=== PATIENT | female | born 1960 | race Caucasian/White ===

== ENCOUNTER 2018-09-01 21:20 | Inpatient (IN) | payer MEDICAID ==
[~2018-09-01] VITALS: Ht 152.4 cm; Wt 61.5 kg
[2018-09-01 21:25] VITALS: Ht 152.4 cm; Wt 61.5 kg
[2018-09-01] MEDS ORDERED: morphine 4 MG/ML VIAL IV STA (23:41)
[2018-09-01] MEDS ORDERED: SOD CHLORIDE 0.9% 500 ML IV STA (23:41)
[2018-09-01] MEDS ORDERED: FAMOTIDINE 20 MG INJ IV STA (23:41)
[2018-09-01] MEDS ORDERED: ONDANSETRON 4 MG INJ IV STA (23:41)
[2018-09-02] MEDS ORDERED: CIPROFLOXACIN 400MG/D5W 200 ML IVPB STA (02:30)
[2018-09-02] MEDS ORDERED: SOD CHLORIDE 0.9% 1,000 ML IV SCH (02:31)
--- NOTE | 2018-09-02 02:39 | ERD ---
ER Documentation Chief Complaint Chief Complaint EPIGASTRIC PAIN X'S 4 DAYS HPI This is a 57-year-old female with epigastric pain for 4 days. Pain is mild to moderate intensity with associated nausea and 4 episodes of vomiting nonbilious and nonbloody. She denies any fevers or chills. Denies any recent abdominal trauma. Denies any sick contacts. Denies any change in bowel habits. Has not been able to tolerate p.o. today secondary to pain. ROS All systems reviewed and are negative except as per history of present illness. Allergies Allergies: Coded Allergies: No Known Allergy (Unverified , 09/02/18) PMhx/Soc Medical and Surgical Hx: pt denies Medical Hx, pt denies Surgical Hx Hx Alcohol Use: No Hx Substance Use: No Hx Tobacco Use: No Smoking Status: Never smoker Physical Exam Vitals Vital Signs Date Temp Pulse Resp B/P (MAP) Pulse Ox O2 O2 Flow FiO2 Time Delivery Rate 09/01/18 99.3 89 20 140/69 98 Room Air 23:36 (92) 09/01/18 99.3 95 20 145/65 98 21:25 (91) Physical Exam Const: No acute distress Head: Atraumatic Eyes: Normal Conjunctiva ENT: Normal External Ears, Nose and Mouth. Neck: Full range of motion. No meningismus. Resp: Clear to auscultation bilaterally Cardio: Regular rate and rhythm, no murmurs Abd: Soft, non tender, non distended. Normal bowel sounds Skin: No petechiae or rashes Back: No midline or flank tenderness Ext: No cyanosis, or edema Neur: Awake and alert Psych: Normal Mood and Affect Result Diagram: 09/01/18 2356 09/01/18 2356 Results 24 hrs Laboratory Tests Test 09/01/18 23:56 White Blood Count 11.9 10^3/ul Red Blood Count 5.01 10^6/ul Hemoglobin 13.9 g/dl Hematocrit 42.1 % Mean Corpuscular Volume 84.0 fl Mean Corpuscular Hemoglobin 27.7 pg Mean Corpuscular Hemoglobin Concent 33.0 g/dl Red Cell Distribution Width 13.2 % Platelet Count 159 10^3/UL Mean Platelet Volume 10.8 fl Immature Granulocytes % 0.400 % Neutrophils % 79.6 % Lymphocytes % 14.4 % Monocytes % 5.2 % Eosinophils % 0.1 % Basophils % 0.3 % Nucleated Red Blood Cells % 0.0 /100WBC Immature Granulocytes # 0.050 10^3/ul Neutrophils # 9.5 10^3/ul Lymphocytes # 1.7 10^3/ul Monocytes # 0.6 10^3/ul Eosinophils # 0.0 10^3/ul Basophils # 0.0 10^3/ul Nucleated Red Blood Cells # 0.0 10^3/ul Urine Color CHANTEL Urine Clarity SLIGHTLY CLOUDY Urine pH 5.0 Urine Specific [place] 1.023 Urine Ketones 1+ mg/dL Urine Nitrite NEGATIVE mg/dL Urine Bilirubin NEGATIVE mg/dL Urine Urobilinogen NEGATIVE mg/dL Urine Leukocyte Esterase NEGATIVE Nick/ul Urine Microscopic RBC 2 /HPF Urine Microscopic WBC 1 /HPF Urine Squamous Epithelial Cells MODERATE /HPF Urine Bacteria FEW /HPF Urine Mucus MODERATE /HPF Urine Hemoglobin 1+ mg/dL Urine Glucose NEGATIVE mg/dL Urine Total Protein NEGATIVE mg/dl Sodium Level 137 mmol/L Potassium Level 3.8 mmol/L Chloride Level 100 mmol/L Carbon Dioxide Level 24 mmol/L Anion Gap 13 Blood Urea Nitrogen 12 mg/dl Creatinine 0.38 mg/dl Est Glomerular Filtrat Rate mL/min > 60 mL/min Glucose Level 168 mg/dl Calcium Level 10.0 mg/dl Total Bilirubin 1.4 mg/dl Direct Bilirubin 0.00 mg/dl Indirect Bilirubin 1.4 mg/dl Aspartate Amino Transf (AST/SGOT) 135 IU/L Alanine Aminotransferase (ALT/SGPT) 234 IU/L Alkaline Phosphatase 341 IU/L Troponin I < 0.012 ng/ml Total Protein 8.1 g/dl Albumin 4.4 g/dl Globulin 3.70 g/dl Albumin/Globulin Ratio 1.18 Lipase 8173 U/L Current Medications Medications Dose Sig/Daya Start Time Status Last (Trade) Ordered Route PRN Stop Time Admin Dose Reason Admin Sodium 500 ml @ Q1H STAT 09/01/18 DC 09/02/18 Chloride 500 mls/hr IV 23:41 09/02/18 00:02 00:40 Morphine 4 mg ONCE STAT 09/01/18 DC 09/02/18 Sulfate IV 23:41 09/01/18 00:02 (morphine) 23:42 Ondansetron 4 mg ONCE STAT 09/01/18 DC 09/02/18 HCl (Zofran IV 23:41 09/01/18 00:02 Inj) 23:42 Famotidine 20 mg ONCE STAT 09/01/18 DC 09/02/18 (Pepcid Iv) IV 23:41 09/01/18 00:02 23:42 200 ml @ ONCE STAT 09/02/18 Ciprofloxacin 200 mls/hr IVPB 02:30 09/02/18 / Dextrose 03:29 Sodium 1,000 ml @ Q6H40M IV 09/02/18 Chloride 150 mls/hr 02:31 IV Flush 3 ml PER 09/02/18 (NS 3 ml) PROTOCOL IV 03:00 Ondansetron 4 mg Q6H PRN 09/02/18 HCl (Zofran IV 03:00 Inj) NAUSEA/VOMITI NG 650 mg Q6H PRN 09/02/18 Acetaminophen PO .PAIN 1-3 03:00 (Tylenol OR TEMP Tab) 0.5 mg Q4H PRN 09/02/18 Hydromorphone IV .SEVERE 03:00 HCl PAIN 7-10 (Dilaudid) Docusate 100 mg Q12H PRN 09/02/18 Sodium PO 03:00 (Colace) .CONSTIPATION Bisacodyl 5 mg DAILY PRN 09/02/18 (Dulcolax) PO 03:00 .CONSTIPATION Procedures/MDM EKG: Rate/Rhythm: [Normal Sinus Rhythm] QRS, ST, T-waves: [No changes consistent w/ acute ischemia], normal intervals, upgoing T waves, normal axis Impression: [No evidence of ischemia or arrhythmia] Chest X-ray 1V Interpreted by me: Soft Tissue: No acute abnormalities Bones: No acute abnormalities Mediastinum/Cardiac Silhouette/Lungs: [No acute abnormalities] Medical decision making: This is a patient has what looks to be gallstone pancreatitis. Patient has been fluid hydrated given pain medication. Patient admitted to hospitalist with surgical consult from Dr. Vega. Departure Diagnosis: Primary Impression: Gallstone pancreatitis Additional Impression: Epigastric pain Condition: Serious HEATH QUINTANILLA Sep 02, 2018 02:39
[2018-09-02] MEDS ORDERED: ONDANSETRON 4 MG INJ IV PRN (03:00)
[2018-09-02] MEDS ORDERED: ACETAMINOPHEN 325 MG TAB PO PRN (03:00)
[2018-09-02] MEDS ORDERED: BISACODYL (EC) 5 MG TAB PO PRN (03:00)
[2018-09-02] MEDS ORDERED: DOCUSATE SODIUM 100 MG CAP PO PRN (03:00)
[2018-09-02] MEDS ORDERED: HYDROmorphONE 0.5 MG/0.5 ML SYG IV PRN (03:00)
[2018-09-02] MEDS ORDERED: NACL 0.9% 3 ML SYG IV SCH (03:00)
[2018-09-02 03:34] VITALS: BP 110/58; PULSE 90; RESP 19
[2018-09-02] MEDS ORDERED: METF-849 PO (03:36)
[2018-09-02] MEDS ORDERED: OMEP10CA4 PO (03:36)
[2018-09-02] MEDS ORDERED: ACET-141 PO (03:36)
--- NOTE | 2018-09-02 04:12 | CONS ---
Assessment/Plan Assessment/Plan Hospital Course (Demo Recall) 1. Abdominal pain 2. Nausea vomiting 3. Gallstones 4. Pancreatitis 5. Transaminitis 6. Hyperbilirubinemia -N.p.o. -Judicious IV fluid -Trend labs -GI consult -MRCP -Outpatient follow-up for cholecystectomy 7. Gastritis -Diet and lifestyle optimization -Antacids Thank you very much for consulting me this patient's care, Consultation Date/Type/Reason Admit Date/Time Sep 02, 2018 at 02:30 Date of Consultation: Sep 02, 2018 Type of Consult General surgical Reason for Consultation Abdominal pain Gallstone Pancreatitis Requesting Provider: HEATH QUINTANILLA Date/Time of Note DATE: 09/02/18 TIME: 04:11 Hx of Present Illness 57-year-old female presents with 4 days of abdominal pain and epigastric region associated with nausea vomiting chills but no fever. No cough. No seizure. No blood per mouth or rectum. No change in bowel habits. No dysuria. No color change of skin stool urine or eyeballs. No previous history of the same. No trauma or sick contacts. Her workup identified pancreatitis with gallstones. LFTs and bilirubin are also elevated. She is being admitted. Surgical consult is obtained further evaluation and treatment. 12 point review of system is negative unless otherwise addressed in chart Past Medical History Gastritis Questionable colonic issues Acute pancreatitis Acute transaminitis Acute hyperbilirubinemia Acute leukocytosis Home Meds Reported Medications Acetaminophen* (Acetaminophen*) 500 MG Extra Strength Tablet, 500 MG PO Q4H PRN for PAIN AND OR ELEVATED TEMP, TAB 09/02/18 Omeprazole* (Omeprazole*) Unknown Strength Capsule.dr, PO BID, #60 CAP 09/02/18 Metformin* (Glucophage*) Unknown Strength Tab, PO WITH BREAKFAST DINNE, #30 TAB 09/02/18 Medications Current Medications Sodium Chloride 1,000 ml @ 150 mls/hr Q6H40M IV Last administered on 09/02/18at 02:31; Admin Dose 150 MLS/HR; Start 09/02/18 at 02:31 IV Flush (NS 3 ml) 3 ml PER PROTOCOL IV ; Start 09/02/18 at 03:00 Ondansetron HCl (Zofran Inj) 4 mg Q6H PRN IV NAUSEA/VOMITING; Start 09/02/18 at 03:00 Acetaminophen (Tylenol Tab) 650 mg Q6H PRN PO .PAIN 1-3 OR TEMP; Start 09/02/18 at 03:00 Hydromorphone HCl (Dilaudid) 0.5 mg Q4H PRN IV .SEVERE PAIN 7-10; Start 09/02/18 at 03:00 Docusate Sodium (Colace) 100 mg Q12H PRN PO .CONSTIPATION; Start 09/02/18 at 03:00 Bisacodyl (Dulcolax) 5 mg DAILY PRN PO .CONSTIPATION; Start 09/02/18 at 03:00 Allergies: Coded Allergies: No Known Allergy (Unverified , 09/02/18) Past Surgical History Bilateral axillary cystic lesion excision Knee surgery Family History Significant Family History: no pertinent family hx Social History Alcohol Use: rarely Smoking Status: Current every day smoker Drug Use: none Exam/Review of Systems Exam Vitals Vital Signs Date Temp Pulse Resp B/P (MAP) Pulse Ox O2 O2 Flow FiO2 Time Delivery Rate 09/02/18 98.8 90 19 110/58 97 03:34 (75) 09/02/18 Room Air 02:44 Constitutional: alert, oriented; No distress Psych: nl mood/affect; No anxiety Head: normocephalic, atraumatic Eyes: nl conjunctiva, EOMI, PERRL ENMT: nl external ears & nose, mucosa pink and moist Neck: supple, non-tender; No jvd Respiratory: normal air movement; No congested cough, No labored breathing Cardiovascular: regular rate and rhythm; No edema Gastrointestinal: soft, tender (Minimal); No distended, No rebound or guarding Musculoskeletal: nl extremities to inspection; No joint tenderness Extremities: normal pulses; No calf tenderness, No cyanosis Neurological: nl mental status, nl speech, nl strength Skin: nl turgor; No rash or lesions, No diaphoresis Lymph: nl lymph nodes Results Result Diagram: 09/01/18 7516 09/01/18 2356 Results 24hrs Laboratory Tests Test 09/01/18 23:56 White Blood Count 11.9 H Red Blood Count 5.01 Hemoglobin 13.9 Hematocrit 42.1 Mean Corpuscular Volume 84.0 Mean Corpuscular Hemoglobin 27.7 L Mean Corpuscular Hemoglobin Concent 33.0 Red Cell Distribution Width 13.2 Platelet Count 159 Mean Platelet Volume 10.8 H Immature Granulocytes % 0.400 Neutrophils % 79.6 H Lymphocytes % 14.4 L Monocytes % 5.2 Eosinophils % 0.1 Basophils % 0.3 Nucleated Red Blood Cells % 0.0 Immature Granulocytes # 0.050 H Neutrophils # 9.5 H Lymphocytes # 1.7 Monocytes # 0.6 Eosinophils # 0.0 Basophils # 0.0 Nucleated Red Blood Cells # 0.0 Urine Color CHANTEL Urine Clarity SLIGHTLY CLOUDY A Urine pH 5.0 Urine Specific [place] 1.023 Urine Ketones 1+ H Urine Nitrite NEGATIVE Urine Bilirubin NEGATIVE Urine Urobilinogen NEGATIVE Urine Leukocyte Esterase NEGATIVE Urine Microscopic RBC 2 Urine Microscopic WBC 1 Urine Squamous Epithelial Cells MODERATE Urine Bacteria FEW A Urine Mucus MODERATE Urine Hemoglobin 1+ H Urine Glucose NEGATIVE Urine Total Protein NEGATIVE Sodium Level 137 Potassium Level 3.8 Chloride Level 100 Carbon Dioxide Level 24 Anion Gap 13 Blood Urea Nitrogen 12 Creatinine 0.38 L Est Glomerular Filtrat Rate mL/min > 60 Glucose Level 168 Calcium Level 10.0 Total Bilirubin 1.4 H Direct Bilirubin 0.00 Indirect Bilirubin 1.4 H Aspartate Amino Transf (AST/SGOT) 135 H Alanine Aminotransferase (ALT/SGPT) 234 H Alkaline Phosphatase 341 H Troponin I < 0.012 Total Protein 8.1 Albumin 4.4 Globulin 3.70 H Albumin/Globulin Ratio 1.18 Lipase 8173 H Medications Medication Current Medications Sodium Chloride 1,000 ml @ 150 mls/hr Q6H40M IV Last administered on 09/02/18at 02:31; Admin Dose 150 MLS/HR; Start 09/02/18 at 02:31 IV Flush (NS 3 ml) 3 ml PER PROTOCOL IV ; Start 09/02/18 at 03:00 Ondansetron HCl (Zofran Inj) 4 mg Q6H PRN IV NAUSEA/VOMITING; Start 09/02/18 at 03:00 Acetaminophen (Tylenol Tab) 650 mg Q6H PRN PO .PAIN 1-3 OR TEMP; Start 09/02/18 at 03:00 Hydromorphone HCl (Dilaudid) 0.5 mg Q4H PRN IV .SEVERE PAIN 7-10; Start 09/02/18 at 03:00 Docusate Sodium (Colace) 100 mg Q12H PRN PO .CONSTIPATION; Start 09/02/18 at 03:00 Bisacodyl (Dulcolax) 5 mg DAILY PRN PO .CONSTIPATION; Start 09/02/18 at 03:00 JOE DO MD Sep 02, 2018 04:12
[2018-09-02] MEDS ORDERED: CIPROFLOXACIN 400MG/D5W 200 ML IVPB SCH (06:00)
[2018-09-02 07:16] VITALS: BP 111/55; PULSE 91; RESP 17
--- NOTE | 2018-09-02 08:04 | HP ---
Date/Time of Note Date/Time of Note DATE: 09/02/18 TIME: 07:54 Assessment/Plan VTE Prophylaxis SCD applied (from Nsg): Yes Pharmacological prophylaxis: NA/contraindicated Pharm contraindication: low risk/ambulating Lines/Catheters IV Catheter Type (from Nrsg): Peripheral IV Urinary Cath still in place: No Assessment/Plan Hospital Course This is a 49-year-old female being admitted to the [facility] floor for: #1 gallstone pancreatitis: Likely secondary to gallstone. Patient does have transaminitis with hyperbilirubinemia. CT scan does show CBD dilatation. Will obtain a right upper quadrant ultrasound. Will obtain an MRCP. General surgery is Victor M been consulted by the ED. Will consult GI as well. We will keep the patient n.p.o. IV fluid hydration with normal saline. Dilaudid for pain. Will check hemoglobin A1c, lipid panel, TSH. Will also check ethanol level. #2 Diabetes mellitus: We will check hemoglobin A1c, will hold metformin at the current time. Insulin sliding scale #3 DVT GI prophylaxis: SCDs, no GI prophylaxis indicated Further treatment strategy will be implemented as per the clinical course. Result Diagram: 09/02/18 0418 09/02/18 0418 Results 24hrs Laboratory Tests Test 09/01/18 23:56 09/02/18 04:18 White Blood Count 11.9 H 8.6 # Red Blood Count 5.01 4.36 Hemoglobin 13.9 12.1 Hematocrit 42.1 36.9 L Mean Corpuscular Volume 84.0 84.6 Mean Corpuscular Hemoglobin 27.7 L 27.8 L Mean Corpuscular Hemoglobin Concent 33.0 32.8 Red Cell Distribution Width 13.2 13.2 Platelet Count 159 166 Mean Platelet Volume 10.8 H 10.3 Immature Granulocytes % 0.400 0.500 H Neutrophils % 79.6 H 71.8 Lymphocytes % 14.4 L 21.4 Monocytes % 5.2 5.9 Eosinophils % 0.1 0.2 Basophils % 0.3 0.2 Nucleated Red Blood Cells % 0.0 0.0 Immature Granulocytes # 0.050 H 0.040 H Neutrophils # 9.5 H 6.2 Lymphocytes # 1.7 1.8 Monocytes # 0.6 0.5 Eosinophils # 0.0 0.0 Basophils # 0.0 0.0 Nucleated Red Blood Cells # 0.0 0.0 Urine Color CHANTEL Urine Clarity SLIGHTLY CLOUDY A Urine pH 5.0 Urine Specific [place] 1.023 Urine Ketones 1+ H Urine Nitrite NEGATIVE Urine Bilirubin NEGATIVE Urine Urobilinogen NEGATIVE Urine Leukocyte Esterase NEGATIVE Urine Microscopic RBC 2 Urine Microscopic WBC 1 Urine Squamous Epithelial Cells MODERATE Urine Bacteria FEW A Urine Mucus MODERATE Urine Hemoglobin 1+ H Urine Glucose NEGATIVE Urine Total Protein NEGATIVE Sodium Level 137 139 Potassium Level 3.8 3.6 Chloride Level 100 103 Carbon Dioxide Level 24 26 Anion Gap 13 10 Blood Urea Nitrogen 12 10 Creatinine 0.38 L 0.38 L Est Glomerular Filtrat Rate mL/min > 60 > 60 Glucose Level 168 129 Calcium Level 10.0 9.2 Total Bilirubin 1.4 H 1.1 Direct Bilirubin 0.00 0.00 Indirect Bilirubin 1.4 H 1.1 Aspartate Amino Transf (AST/SGOT) 135 H 93 H Alanine Aminotransferase (ALT/SGPT) 234 H 182 H Alkaline Phosphatase 341 H 278 H Troponin I < 0.012 Total Protein 8.1 6.8 # Albumin 4.4 3.6 Globulin 3.70 H 3.20 Albumin/Globulin Ratio 1.18 1.12 Lipase 8173 H 5464 H Hemoglobin A1c 10.6 H Magnesium Level 2.1 Triglycerides Level 114 Cholesterol Level 164 LDL Cholesterol, Calculated 71 HDL Cholesterol 70 Cholesterol/HDL Ratio 2.3 Thyroid Stimulating Hormone (TSH) < 0.015 L HPI/ROS Admit Date/Time Admit Date/Time Sep 02, 2018 at 02:30 Hx of Present Illness Chief complaint: Epigastric pain times 4 days This is a 57-year-old female presents with 4 days of abdominal pain and epigastric region associated with nausea vomiting chills but no fever. No cough. No seizure. No blood per mouth or rectum. No change in bowel habits. No dysuria. No color change of skin stool urine or eyeballs. No previous history of the same. No trauma or sick contacts. Allergies: NKDA Medications: None ROS Const: As per HPI Eyes : No pain discharge or redness or change in visual acuity ENT: No pain, sore throat, congestion, congestion, dysphagia or discharge Respiratory: No shortness of breath, cough, sputum, wheezing, or pleuritic pain Cardiovascular: No chest pain, palpitation, PND, or edema GI : As per HPI Genitourinary: No dysuria, hematuria, flank pain , discharge or CVA tenderness Musculoskeletal: No joint pain, back pain, neck pain, restricted range of motion in neck or joints Skin: No rash, bruising or hives Neuro: No headache, dizziness, syncope, seizure, focal weakness Endocrine: No polyuria, polydipsia, temperature intolerance Psych: No hallucination, depression, anxiety or suicidal ideation PMH/Family/Social Past Medical History Diabetes Medications Current Medications Sodium Chloride 1,000 ml @ 150 mls/hr Q6H40M IV Last administered on 09/02/18at 02:31; Admin Dose 150 MLS/HR; Start 09/02/18 at 02:31 IV Flush (NS 3 ml) 3 ml PER PROTOCOL IV ; Start 09/02/18 at 03:00 Ondansetron HCl (Zofran Inj) 4 mg Q6H PRN IV NAUSEA/VOMITING; Start 09/02/18 at 03:00 Acetaminophen (Tylenol Tab) 650 mg Q6H PRN PO .PAIN 1-3 OR TEMP; Start 09/02/18 at 03:00 Hydromorphone HCl (Dilaudid) 0.5 mg Q4H PRN IV .SEVERE PAIN 7-10; Start 09/02/18 at 03:00 Docusate Sodium (Colace) 100 mg Q12H PRN PO .CONSTIPATION; Start 09/02/18 at 03:00 Bisacodyl (Dulcolax) 5 mg DAILY PRN PO .CONSTIPATION; Start 09/02/18 at 03:00 Coded Allergies: No Known Allergy (Unverified , 09/02/18) Past Surgical History Right knee surgery Family History Significant Family History: no pertinent family hx Social History Alcohol Use: rarely Smoking Status: Current every day smoker Drug Use: none Exam/Review of Systems Vital Signs Vitals Vital Signs Date Temp Pulse Resp B/P (MAP) Pulse Ox O2 O2 Flow FiO2 Time Delivery Rate 09/02/18 98.4 91 17 111/55 95 07:16 (73) 09/02/18 Room Air 02:44 Intake and Output 09/01/18 09/01/18 09/02/18 1414:59 22:59 06:59 IntakeIntake Total 575 ml BalanceBalance 575 ml Exam Exam General: Patient is a pleasant female currently lying in bed in no acute distress HEENT: Atraumatic, normocephalic. The pupils are equal, round and reactive. Extraocular motor are intact Neck: Supple with full range of motion. No rigidity or meningismus Chest: Nontender Lungs: Clear to auscultation bilaterally no crackles rales or wheezing Heart: Normal S1-S2, Regular rhythm and rate. No murmur, S3, or S4 Abdomen: Soft , tender to palpation over the right upper quadrant as well as epigastric area,, bowel sounds are present. No guarding no rebound tenderness , No masses or organomegaly. No costovertebral temporal angle mass Extremities: Normal to inspection, no edema no cyanosis Neurologic: Normal mental status, speech normal, cranial nerves II through XII are intact, motor and sensory are intact, Additional Comments PROCEDURE: CT ABDOMEN/PELVIS WITHOUT CONTRAST CLINICAL INDICATION: 57-year-old female with abdominal pain. TECHNIQUE: The study was performed utilizing a [employer] VCT 64-slice CT scanner. Direct axial sections were obtained through the abdomen and pelvis without the use of intravenous contrast material. Sagittal and coronal reformations were obtained. One or more of the following dose reduction techniques were utilized: automated exposure control, adjustment of the mA and/or kV according to patient's size, use of iterative reconstruction technique. DICOM images are available. The images were reviewed on a PACS workstation. CTD/vol = 8.05 mGy; Total Exam DLP = 454.03 mGy.cm. COMPARISON: None. FINDINGS: There is minimal bibasilar subsegmental atelectasis. There is no evidence for significant pleural effusion. The liver has a normal size and contour without focal areas of abnormal density. No intrahepatic biliary ductal dilatation is seen. There is a lateral gallbladder which appears to be distended and contains multiple small dependent gallstones without gallbladder wall thickening. The distal common bile duct is enlarged measuring approximately 8 mm. The pancreas is without areas of abnormal attenuation. The spleen is identified and has a normal size without abnormal density. The adrenal glands are unremarkable. The kidneys are without abnormal density. No hydroureteronephrosis nor nephroureterolithiasis is evident. The urinary bladder contains urine. There is no evidence for bowel obstruction. The appendix is visualized and is without abnormal thickening or surrounding inflammatory reaction. The uterus is unremarkable. There is no significant free fluid. The aortoiliac vessels are mildly calcified but without aneurysmal dilatation. The osseous structures are intact. IMPRESSION: 1. Distended lateral gallbladder with cholelithiasis and mildly dilated common bile duct. 2. No CT evidence for appendicitis. 3. Mild vascular calcifications. .Romario Jean Baptiste MD, MD Date Time Electronically viewed and signed by .Romario Jean Baptiste MD, MD on 09/02/2018 01:27 .M/ CC: HEATH QUINTANILLA [id number] PROCEDURE: CHEST - 1 VIEW CLINICAL INDICATION: 57-year-old female with chest/abdominal pain. TECHNIQUE: A single frontal AP semi-erect portable view of the chest was performed. The images were reviewed on a PACS workstation. COMPARISON: None. FINDINGS: The cardiomediastinal silhouette has a normal appearance. There is no evidence for an infiltrate. There is no evidence for congestive heart failure. There is no evidence for pneumothorax. The osseous structures are intact. IMPRESSION: No evidence for active cardiopulmonary disease. .Romario Jean Baptiste MD, MD Date Time Electronically viewed and signed by .Romario Jean Baptiste MD, MD on 09/02/2018 01:30 .M/ CC: HEATH QUINTANILLA [phone] MIRI GILBERT Sep 02, 2018 08:04
[2018-09-02] MEDS ORDERED: GLUCOSE GEL 15 GRAM TUBE PO PRN ×2 (09:00)
[2018-09-02] MEDS: INSULIN ASPART [NOVOLOG] 3 ML PEN SC SCH ×4 (09:00→21:26)
[2018-09-02] MEDS ORDERED: GLUCOSE GEL 15 GRAM TUBE BUCCAL PRN (09:00)
[2018-09-02] MEDS ORDERED: DEXTROSE 50% 50 ML SYRINGE IV PRN ×2 (09:00)
[2018-09-02] MEDS ORDERED: GLUCAGON 1 MG INJ IM PRN (09:00)
[2018-09-02] MEDS ORDERED: KETOROLAC 15 MG INJ IV STA (10:03)
--- NOTE | 2018-09-02 10:37 | QN ---
Documentation Comment This is a 57-year-old female with history of diabetes, admitted with sudden onset of right lower quadrant abdominal pain associated with nonbilious/nonbloody vomiting times 4-day duration, found to have biliary pancreatitis. Appreciate surgery recommendation who recommended outpatient elective cholecystectomy. Patient with CBD dilatation and CT, as such MRCP has been ordered. We will follow-up MRCP findings and gastroenterology recommendations. Continue n.p.o. status. Will add insulin Lantus for diabetes management. Trend lipase. Will give 1 dose of Toradol as patient is in excruciating abdominal pain and will increase Dilaudid to 1 mg as needed. Case discussed with Dr. Nguyen. MI MONTIEL NP Sep 02, 2018 10:37
[2018-09-02] MEDS: DEXTROSE 5%-0.45% NACL 1,000 ML IV SCH (10:40)
[2018-09-02] MEDS: PANTOPRAZOLE 40 MG INJ IV SCH (10:48)
--- NOTE | 2018-09-02 12:30 | CONS ---
Assessment/Plan Assessment/Plan Hospital Course (Demo Recall) Summary Assessment and Plan: Assessment: Acute pancreatitis likely secondary to cholelithiasis Cholelithiasis Elevated LFTs-down -Hepatitis serology pending Indirect hyperbilirubinemia-resolved Plan: MRCP is currently pending if positive will proceed with ERCP after pancreatitis has improved/resolved Keep n.p.o. push IV fluids Pain management as needed Continue close observation Patient seen in collaboration with Dr. Coffey CC: ISH COFFEY MD ; Consultation Date/Type/Reason Admit Date/Time Sep 02, 2018 at 02:30 Date of Consultation: Sep 02, 2018 Type of Consult GI Reason for Consultation Pancreatitis, likely secondary to gallstones Date/Time of Note DATE: 09/02/18 TIME: 12:27 Hx of Present Illness This is a 57-year-old Fijian-speaking female (an diamond sorter was used) resents to the hospital with complaints of upper abdominal pain associate with nausea nonbloody vomiting here patient underwent imaging showing distended gallbladder with cholelithiasis and mildly dilated common bile duct additionally labs were obtained, with noted indirect hyperbilirubinemia and elevated LFTs as well as a very elevated lipase of 8173. Serology was checked and currently pending toxicology was completed and negative for alcohol INR 0.99. She has been consulted for possible gallstone pancreatitis. Given imaging findings and MRCP has been ordered and is currently pending patient is currently n.p.o. She complains of upper left quadrant pain radiating to the back 8 out of 10. She now denies further episodes of nausea or vomiting and denies overt signs of GI bleed, constipation, or diarrhea. Discussed plan to push IV fluids pain management as needed obtain MRCP. If positive will proceed with ERCP with resolution of pancreatitis. Review of Systems: [A 12 system, review was conducted and is negative except as noted in the HPI or here.] Past Medical History Home Meds Reported Medications Acetaminophen* (Acetaminophen*) 500 MG Extra Strength Tablet, 500 MG PO Q4H PRN for PAIN AND OR ELEVATED TEMP, TAB 09/02/18 Omeprazole* (Omeprazole*) Unknown Strength Capsule.dr, PO BID, #60 CAP 09/02/18 Metformin* (Glucophage*) Unknown Strength Tab, PO WITH BREAKFAST DINNE, #30 TAB 09/02/18 Medications Current Medications IV Flush (NS 3 ml) 3 ml PER PROTOCOL IV ; Start 09/02/18 at 03:00 Ondansetron HCl (Zofran Inj) 4 mg Q6H PRN IV NAUSEA/VOMITING; Start 09/02/18 at 03:00 Acetaminophen (Tylenol Tab) 650 mg Q6H PRN PO .PAIN 1-3 OR TEMP; Start 09/02/18 at 03:00 Docusate Sodium (Colace) 100 mg Q12H PRN PO .CONSTIPATION; Start 09/02/18 at 03:00 Bisacodyl (Dulcolax) 5 mg DAILY PRN PO .CONSTIPATION; Start 09/02/18 at 03:00 Diagnostic Test (Pha) (Accu-Chek) 1 ea 02 XX ; Start 09/03/18 at 02:00 Insulin Aspart (Novolog Insulin Pen) NOVOLOG *MILD* ALGORI... Q4 SC ; Start 09/02/18 at 09:00 Miscellaneous Information 1 ea NOTE XX ; Start 09/02/18 at 09:00 Glucose (Glutose) 15 gm Q15M PRN PO DECREASED GLUCOSE; Start 09/02/18 at 09:00 Glucose (Glutose) 22.5 gm Q15M PRN PO DECREASED GLUCOSE; Start 09/02/18 at 09:00 Dextrose (D50w Syringe) 25 ml Q15M PRN IV DECREASED GLUCOSE; Start 09/02/18 at 09:00 Dextrose (D50w Syringe) 50 ml Q15M PRN IV DECREASED GLUCOSE; Start 09/02/18 at 09:00 Glucagon (Glucagen) 1 mg Q15M PRN IM DECREASED GLUCOSE; Start 09/02/18 at 09:00 Glucose (Glutose) 15 gm Q15M PRN BUCCAL DECREASED GLUCOSE; Start 09/02/18 at 09:00 Hydromorphone HCl (Dilaudid) 1 mg Q4H PRN IV .SEVERE PAIN 7-10; Start 09/02/18 at 11:00 Dextrose/Sodium Chloride 1,000 ml @ 80 mls/hr [id number] IV Last administered on 09/02/18at 10:40; Admin Dose 80 MLS/HR; Start 09/02/18 at 10:30 Insulin Glargine (Lantus) 9 units DAILY@0800 SC ; Start 09/02/18 at 10:30 Pantoprazole (Protonix Iv) 40 mg DAILY@06 IV Last administered on 09/02/18at 10:48; Admin Dose 40 MG; Start 09/02/18 at 10:30 Allergies: Coded Allergies: No Known Allergy (Unverified , 09/02/18) Social History Alcohol Use: rarely Smoking Status: Current every day smoker Drug Use: none Exam/Review of Systems Exam Vitals Vital Signs Date Temp Pulse Resp B/P (MAP) Pulse Ox O2 O2 Flow FiO2 Time Delivery Rate 09/02/18 98.4 91 17 111/55 95 07:16 (73) 09/02/18 Room Air 02:44 Intake and Output 09/01/18 09/01/18 09/02/18 1515:00 23:00 07:00 IntakeIntake Total 575 ml BalanceBalance 575 ml Exam PHYSICAL EXAMINATION: GENERAL: Well developed, well nourished, alert & oriented x 3 SKIN: No lesions EYES: Pupils equal reactive to light, no discharge. EARS/NOSE AND THROAT: Ears normal, nose normal NECK: Supple, no masses CHEST: Inspection within normal limits. CARDIOVASCULAR: Heart: Regular rate and rhythm RESPIRATORY: Lungs clear to auscultation GASTROINTESTINAL AND LIVER: Abdomen: Soft, LUQ pain 8/10, non-distended, no hernias, no masses, no organomegaly, no ascites, no guarding, no rebound tenderness, normoactive bowel sounds. Rectal: Deferred. EXTREMITIES: No cyanosis, clubbing or edema. Results Result Diagram: 09/02/18 0418 09/02/18 0418 Results 24hrs Laboratory Tests Test 09/01/18 23:56 09/02/18 04:18 09/02/18 08:41 09/02/18 09:46 White Blood Count 11.9 H 8.6 # Red Blood Count 5.01 4.36 Hemoglobin 13.9 12.1 Hematocrit 42.1 36.9 L Mean Corpuscular 84.0 84.6 Volume Mean Corpuscular 27.7 L 27.8 L Hemoglobin Mean Corpuscular 33.0 32.8 Hemoglobin Concent Red Cell 13.2 13.2 Distribution Width Platelet Count 159 166 Mean Platelet 10.8 H 10.3 Volume Immature 0.400 0.500 H Granulocytes % Neutrophils % 79.6 H 71.8 Lymphocytes % 14.4 L 21.4 Monocytes % 5.2 5.9 Eosinophils % 0.1 0.2 Basophils % 0.3 0.2 Nucleated Red 0.0 0.0 Blood Cells % Immature 0.050 H 0.040 H Granulocytes # Neutrophils # 9.5 H 6.2 Lymphocytes # 1.7 1.8 Monocytes # 0.6 0.5 Eosinophils # 0.0 0.0 Basophils # 0.0 0.0 Nucleated Red 0.0 0.0 Blood Cells # Urine Color CHANTEL Urine Clarity SLIGHTLY CLOUDY A Urine pH 5.0 Urine Specific 1.023 [place] Urine Ketones 1+ H Urine Nitrite NEGATIVE Urine Bilirubin NEGATIVE Urine Urobilinogen NEGATIVE Urine Leukocyte NEGATIVE Esterase Urine Microscopic 2 RBC Urine Microscopic 1 WBC Urine Squamous MODERATE Epithelial Cells Urine Bacteria FEW A Urine Mucus MODERATE Urine Hemoglobin 1+ H Urine Glucose NEGATIVE Urine Total NEGATIVE Protein Sodium Level 137 139 Potassium Level 3.8 3.6 Chloride Level 100 103 Carbon Dioxide 24 26 Level Anion Gap 13 10 Blood Urea 12 10 Nitrogen Creatinine 0.38 L 0.38 L Est Glomerular > 60 > 60 Filtrat Rate mL/min Glucose Level 168 129 Calcium Level 10.0 9.2 Total Bilirubin 1.4 H 1.1 Direct Bilirubin 0.00 0.00 Indirect Bilirubin 1.4 H 1.1 Aspartate Amino 135 H 93 H Transf (AST/SGOT) Alanine 234 H 182 H Aminotransferase ( ALT/SGPT) Alkaline 341 H 278 H Phosphatase Troponin I < 0.012 Total Protein 8.1 6.8 # Albumin 4.4 3.6 Globulin 3.70 H 3.20 Albumin/Globulin 1.18 1.12 Ratio Lipase 8173 H 5464 H Hemoglobin A1c 10.6 H Magnesium Level 2.1 Triglycerides 114 Level Cholesterol Level 164 LDL Cholesterol, 71 Calculated HDL Cholesterol 70 Cholesterol/HDL 2.3 Ratio Thyroid < 0.015 L Stimulating Hormone (TSH) Bedside Glucose 145 Prothrombin Time 13.2 Prothrombin Time 1.0 Ratio INR International 0.99 Normalized Ratio Activated 31.[address] Time Ethyl Alcohol < 10.0 H Level Hepatitis B NEGATIVE Surface Antigen Hepatitis B Core NEGATIVE Total Antibody Hepatitis C NEGATIVE Antibody Medications Medication Current Medications IV Flush (NS 3 ml) 3 ml PER PROTOCOL IV ; Start 09/02/18 at 03:00 Ondansetron HCl (Zofran Inj) 4 mg Q6H PRN IV NAUSEA/VOMITING; Start 09/02/18 at 03:00 Acetaminophen (Tylenol Tab) 650 mg Q6H PRN PO .PAIN 1-3 OR TEMP; Start 09/02/18 at 03:00 Docusate Sodium (Colace) 100 mg Q12H PRN PO .CONSTIPATION; Start 09/02/18 at 03: 00 Bisacodyl (Dulcolax) 5 mg DAILY PRN PO .CONSTIPATION; Start 09/02/18 at 03:00 Diagnostic Test (Pha) (Accu-Chek) 1 ea 02 XX ; Start 09/03/18 at 02:00 Insulin Aspart (Novolog Insulin Pen) NOVOLOG *MILD* ALGORI... Q4 SC ; Start 09/02/18 at 09:00 Miscellaneous Information 1 ea NOTE XX ; Start 09/02/18 at 09:00 Glucose (Glutose) 15 gm Q15M PRN PO DECREASED GLUCOSE; Start 09/02/18 at 09:00 Glucose (Glutose) 22.5 gm Q15M PRN PO DECREASED GLUCOSE; Start 09/02/18 at 09:00 Dextrose (D50w Syringe) 25 ml Q15M PRN IV DECREASED GLUCOSE; Start 09/02/18 at 09:00 Dextrose (D50w Syringe) 50 ml Q15M PRN IV DECREASED GLUCOSE; Start 09/02/18 at 09:00 Glucagon (Glucagen) 1 mg Q15M PRN IM DECREASED GLUCOSE; Start 09/02/18 at 09:00 Glucose (Glutose) 15 gm Q15M PRN BUCCAL DECREASED GLUCOSE; Start 09/02/18 at 09:00 Hydromorphone HCl (Dilaudid) 1 mg Q4H PRN IV .SEVERE PAIN 7-10; Start 09/02/18 at 11:00 Dextrose/Sodium Chloride 1,000 ml @ 80 mls/hr [id number] IV Last administered on 09/02/18at 10:40; Admin Dose 80 MLS/HR; Start 09/02/18 at 10:30 Insulin Glargine (Lantus) 9 units DAILY@0800 SC ; Start 09/02/18 at 10:30 Pantoprazole (Protonix Iv) 40 mg DAILY@06 IV Last administered on 09/02/18at 10:48; Admin Dose 40 MG; Start 09/02/18 at 10:30 ERIC GORMAN Sep 02, 2018 12:30
[2018-09-02] MEDS: INSULIN GLARGINE [LANTus] (100 UNITS/ML) SYG SC SCH (13:04)
[2018-09-02 13:38] VITALS: BP 121/72; PULSE 83; RESP 18
[2018-09-02] MEDS: HYDROmorphONE 0.5 MG/0.5 ML SYG IV PRN ×2 (18:00→21:57)
[2018-09-02 19:35] VITALS: BP 125/59; PULSE 80; RESP 20
[2018-09-03] MEDS: DEXTROSE 5%-0.45% NACL 1,000 ML IV SCH ×2 (00:19→12:41)
[2018-09-03] MEDS: INSULIN ASPART [NOVOLOG] 3 ML PEN SC SCH ×6 (01:45→20:29)
[2018-09-03] MEDS: ACCU-CHEK XX SCH (01:47)
[2018-09-03 02:00] VITALS: BP 121/58; PULSE 84; RESP 20
[2018-09-03] MEDS: HYDROmorphONE 0.5 MG/0.5 ML SYG IV PRN ×4 (02:02→17:40)
[2018-09-03] MEDS: PIPER-TAZO 3.375 GM IV (PMX) 100 ML IVPB SCH ×4 (05:17→23:20)
[2018-09-03] MEDS: PANTOPRAZOLE 40 MG INJ IV SCH (05:19)
[2018-09-03 07:55] VITALS: BP 108/54; PULSE 78; RESP 18
[2018-09-03] MEDS: INSULIN GLARGINE [LANTus] (100 UNITS/ML) SYG SC SCH (09:26)
--- NOTE | 2018-09-03 11:00 | PN ---
Date/Time of Note Date/Time of Note DATE: 09/03/18 TIME: 10:58 Assessment/Plan VTE Prophylaxis Risk score (from Ns)>0 risk: 2 SCD applied (from Ns): Yes Pharmacological prophylaxis: NA/contraindicated Pharm contraindication: low risk/ambulating Lines/Catheters IV Catheter Type (from [facility]): Peripheral IV Urinary Cath still in place: No Assessment/Plan Hospital Course SUBJECTIVE: Lying in bed, with improved right-sided abdominal pain. Had regular bowel movements. No nausea or vomiting. OBJECTIVE: Vital signs-see below PHYSICAL EXAM: Constitutional: Well-developed, adequately built, lying in bed comfortably. Psych: nl mood/affect, no complaints Head: atraumatic, normocephalic Eyes: nl conjunctiva, nl sclera ENMT: mucosa pink and moist, nl external ears & nose Neck: non-tender, supple Respiratory: clear to auscultation, normal air movement Cardiovascular: nl pulses, regular rate and rhythm Gastrointestinal: Mild tenderness to right upper and lower quadrant. .soft, bowel sounds active in all 4 quadrants. Musculoskeletal/extremities:Nl extremities to inspection, motor strength equal bilaterally, no focal deficit. Normal pulses,no cyanosis, no edema. Neurological: Alert oriented 3,nl speech, nl strength Skin: nl turgor ASSESSMENT/PLAN: 57-year-old female with diabetes, admitted with RLQ abdominal pain associated with nonbilious/nonbloody vomiting times 4-day duration found to have gallstone pancreatitis. 1. Gallstone pancreatitis. -Resolving nicely. -If no plan for ERCP or cholecystectomy, will start patient on diet. Follow-up GI and surgery recommendations. -Continue trending up lipase and LFTs. 2. Cholelithiasis with probable cholecystitis. -Surgery following and will follow up their recommendations. Patient eventually needs cholecystectomy currently decision pending whether this is inpatient versus outpatient. 3. CBD dilatation 10 mm in size, no choledocholithiasis identified an MRI - GI following and possibly needs ERCP -Bilirubinemia resolved. 4.DMII -Stable glycemic trends. Continue insulin regimen. 5. Fatty liver. -Lifestyle changes advised. DVT prophylaxis: SCDs/ambulation. PUD prophylaxis: Not indicated CODE STATUS: Full code Diet: N.p.o. until cleared from GI/surgery standpoint. Disposition: Continue current management. Overall patient with resolving lipase. At this time, decision pending whether patient needs ERCP versus cholecystectomy as inpatient. We will start patient on a diet if there is no surgical/procedural plan. Patient was seen in collaboration with Dr. Nguyen. Result Diagram: 09/03/18 0418 09/03/18 0418 Results 24hrs Laboratory Tests Test 09/02/18 13:00 09/02/18 17:55 09/02/18 21:23 09/03/18 01:33 Bedside Glucose 149 147 143 166 Test 09/03/18 04:18 09/03/18 05:16 09/03/18 08:55 White Blood Count 4.9 # Red Blood Count 4.49 Hemoglobin 12.3 Hematocrit 38.8 Mean Corpuscular Volume 86.4 Mean Corpuscular 27.4 L Hemoglobin Mean Corpuscular 31.7 L Hemoglobin Concent Red Cell Distribution 13.2 Width Platelet Count 160 Mean Platelet Volume 10.5 H Immature Granulocytes % 0.600 H Neutrophils % 51.0 Lymphocytes % 36.3 Monocytes % 9.9 Eosinophils % 1.8 Basophils % 0.4 Nucleated Red Blood 0.0 Cells % Immature Granulocytes # 0.030 Neutrophils # 2.5 Lymphocytes # 1.8 Monocytes # 0.5 Eosinophils # 0.1 Basophils # 0.0 Nucleated Red Blood 0.0 Cells # Sodium Level 143 Potassium Level 3.8 Chloride Level 106 Carbon Dioxide Level 27 Anion Gap 10 Blood Urea Nitrogen 9 Creatinine 0.43 L Est Glomerular Filtrat > 60 Rate mL/min Glucose Level 146 Calcium Level 9.3 Magnesium Level 2.2 Total Bilirubin 0.6 Direct Bilirubin 0.00 Indirect Bilirubin 0.6 Aspartate Amino 58 H Transf (AST/SGOT) Alanine 130 H Aminotransferase (ALT/SG PT) Alkaline Phosphatase 241 H Total Protein 6.8 Albumin 3.6 Globulin 3.20 Albumin/Globulin Ratio 1.12 Lipase 459 H Bedside Glucose 133 161 Exam/Review of Systems Exam Vitals Vital Signs Date Temp Pulse Resp B/P (MAP) Pulse Ox O2 O2 Flow FiO2 Time Delivery Rate 09/03/18 98.3 78 18 108/54 94 Room Air 07:55 (72) Intake and Output 09/02/18 09/02/18 09/03/18 1515:00 23:00 07:00 IntakeIntake Total 500 ml 500 ml 1080 ml BalanceBalance 500 ml 500 ml 1080 ml Results Results 24hrs Laboratory Tests Test 09/02/18 13:00 09/02/18 17:55 09/02/18 21:23 09/03/18 01:33 Bedside Glucose 149 147 143 166 Test 09/03/18 04:18 09/03/18 05:16 09/03/18 08:55 White Blood Count 4.9 # Red Blood Count 4.49 Hemoglobin 12.3 Hematocrit 38.8 Mean Corpuscular Volume 86.4 Mean Corpuscular 27.4 L Hemoglobin Mean Corpuscular 31.7 L Hemoglobin Concent Red Cell Distribution 13.2 Width Platelet Count 160 Mean Platelet Volume 10.5 H Immature Granulocytes % 0.600 H Neutrophils % 51.0 Lymphocytes % 36.3 Monocytes % 9.9 Eosinophils % 1.8 Basophils % 0.4 Nucleated Red Blood 0.0 Cells % Immature Granulocytes # 0.030 Neutrophils # 2.5 Lymphocytes # 1.8 Monocytes # 0.5 Eosinophils # 0.1 Basophils # 0.0 Nucleated Red Blood 0.0 Cells # Sodium Level 143 Potassium Level 3.8 Chloride Level 106 Carbon Dioxide Level 27 Anion Gap 10 Blood Urea Nitrogen 9 Creatinine 0.43 L Est Glomerular Filtrat > 60 Rate mL/min Glucose Level 146 Calcium Level 9.3 Magnesium Level 2.2 Total Bilirubin 0.6 Direct Bilirubin 0.00 Indirect Bilirubin 0.6 Aspartate Amino 58 H Transf (AST/SGOT) Alanine 130 H Aminotransferase (ALT/SG PT) Alkaline Phosphatase 241 H Total Protein 6.8 Albumin 3.6 Globulin 3.20 Albumin/Globulin Ratio 1.12 Lipase 459 H Bedside Glucose 133 161 Medications Medication Current Medications IV Flush (NS 3 ml) 3 ml PER PROTOCOL IV ; Start 09/02/18 at 03:00 Ondansetron HCl (Zofran Inj) 4 mg Q6H PRN IV NAUSEA/VOMITING; Start 09/02/18 at 03:00 Acetaminophen (Tylenol Tab) 650 mg Q6H PRN PO .PAIN 1-3 OR TEMP; Start 09/02/18 at 03:00 Docusate Sodium (Colace) 100 mg Q12H PRN PO .CONSTIPATION; Start 09/02/18 at 03:00 Bisacodyl (Dulcolax) 5 mg DAILY PRN PO .CONSTIPATION; Start 09/02/18 at 03:00 Diagnostic Test (Pha) (Accu-Chek) 1 ea 02 XX ; Start 09/03/18 at 02:00 Insulin Aspart (Novolog Insulin Pen) NOVOLOG *MILD* ALGORI... Q4 SC Last administered on 09/03/18at 09:20; Admin Dose 1 UNIT; Start 09/02/18 at 09:00 Miscellaneous Information 1 ea NOTE XX ; Start 09/02/18 at 09:00 Glucose (Glutose) 15 gm Q15M PRN PO DECREASED GLUCOSE; Start 09/02/18 at 09:00 Glucose (Glutose) 22.5 gm Q15M PRN PO DECREASED GLUCOSE; Start 09/02/18 at 09:00 Dextrose (D50w Syringe) 25 ml Q15M PRN IV DECREASED GLUCOSE; Start 09/02/18 at 09:00 Dextrose (D50w Syringe) 50 ml Q15M PRN IV DECREASED GLUCOSE; Start 09/02/18 at 09:00 Glucagon (Glucagen) 1 mg Q15M PRN IM DECREASED GLUCOSE; Start 09/02/18 at 09:00 Glucose (Glutose) 15 gm Q15M PRN BUCCAL DECREASED GLUCOSE; Start 09/02/18 at 09:00 Hydromorphone HCl (Dilaudid) 1 mg Q4H PRN IV .SEVERE PAIN 7-10 Last administere d on 09/03/18at 10:23; Admin Dose 1 MG; Start 09/02/18 at 11:00 Dextrose/Sodium Chloride 1,000 ml @ 80 mls/hr [id number] IV Last administered on 09/03/18at 00:19; Admin Dose 80 MLS/HR; Start 09/02/18 at 10:30 Insulin Glargine (Lantus) 9 units DAILY@0800 SC Last administered on 09/03/18at 09:26; Admin Dose 9 UNITS; Start 09/02/18 at 10:30 Pantoprazole (Protonix Iv) 40 mg DAILY@06 IV Last administered on 09/03/18at 05:19; Admin Dose 40 MG; Start 09/02/18 at 10:30 Piperacillin Sod/ Tazobactam Sod 100 ml @ 200 mls/hr Q6 IVPB Last administered on 09/03/18at 05:17; Admin Dose 200 MLS/HR; Start 09/03/18 at 06:00 MI MONTIEL NP Sep 03, 2018 11:00
--- NOTE | 2018-09-03 11:31 | PN ---
Date/Time of Note Date/Time of Note DATE: 09/03/18 TIME: 11:20 Assessment/Plan Lines/Catheters IV Catheter Type (from [facility]): Peripheral IV Alex in Place (from [facility]): No Assessment/Plan Chief Complaint/Hosp Course 1. Abdominal pain: Improved 2. Nausea vomiting: Resolved 3. Gallstones 4. Pancreatitis: Likely secondary to #3: Improving 5. Transaminitis: Improved 6. Hyperbilirubinemia: Improved; possible cholecystitis -Judicious IV fluid -Trend labs -GI consult noted> possible ERCP -MRCP noted with dilated CBD -Diet resumption okay from surgical standpoint > low-fat low-cholesterol diet -Outpatient follow-up for cholecystectomy, had long discussion with family. family and patient would prefer to have outpatient surgery in [facility] where the patient resides. The patient is planning to fly back on the of this month. She was instructed to follow-up with primary care and surgeon when she returns [facility]. 7. Gastritis -Diet and lifestyle optimization -Antacids Thank you. Patient seen and examined in collaboration with Dr. Gary Vega. Subjective 24 Hr Interval Summary Feels better. Improved abdominal pain. LFTs and lipase improving. No fevers, chills, sob, congested cough, cp, palpitations, kaba, dizziness, nausea, vomiting, diarrhea, dysuria. Exam/Review of Systems Vital Signs Vitals Vital Signs Date Temp Pulse Resp B/P (MAP) Pulse Ox O2 O2 Flow FiO2 Time Delivery Rate 09/03/18 98.3 78 18 108/54 94 Room Air 07:55 (72) Intake and Output 09/02/18 09/02/18 09/03/18 1515:00 23:00 07:00 IntakeIntake Total 500 ml 500 ml 1080 ml BalanceBalance 500 ml 500 ml 1080 ml Exam Free Text/Dictation Constitutional: alert, oriented; No distress Psych: nl mood/affect; No anxiety Head: normocephalic, atraumatic Eyes: nl conjunctiva, EOMI, PERRL ENMT: nl external ears & nose, mucosa pink and moist Neck: supple, non-tender; No jvd Respiratory: normal air movement; No congested cough, No labored breathing Cardiovascular: regular rate and rhythm; No edema Gastrointestinal: soft, tender (Minimalimproved); No distended, No rebound or guarding Musculoskeletal: nl extremities to inspection; No joint tenderness Extremities: normal pulses; No calf tenderness, No cyanosis Neurological: nl mental status, nl speech, nl strength Skin: nl turgor; No rash or lesions, No diaphoresis Lymph: nl lymph nodes Results Result Diagram: 09/03/18 0418 09/03/18 0418 MICHAEL HAJI NP Sep 03, 2018 11:31
--- NOTE | 2018-09-03 13:25 | PN ---
Date/Time of Note Date/Time of Note DATE: 09/03/18 TIME: 13:23 Assessment/Plan VTE Prophylaxis Risk score (from Ns)>0 risk: 2 SCD applied (from Ns): Yes Pharmacological prophylaxis: other (scds) Lines/Catheters IV Catheter Type (from [facility]): Peripheral IV Urinary Cath still in place: No Assessment/Plan Hospital Course Summary Assessment and Plan: Assessment: Acute pancreatitis likely secondary to cholelithiasis -MRCP- Mild common bile duct dilatation up to 10 mm. No choledocholithiasis is seen. Cholelithiasis Elevated LFTs-trending down -Hepatitis serology pending Indirect hyperbilirubinemia-resolved Plan: Reviewed results with Dr. Coffey- likely stone passage no plan for ERCP at this time- as patient is improving and no obstruction noted Pt was offered cholecystectomy, would prefer to go home and have surgery completed there- per surgery Pt continues to c/o pain 01/09- recommend keeping patient NPO with IVF Supportive care Patient seen in collaboration with Dr. Coffey/kaylan Subjective: Course reviewed with nursing staff Patient interviewed and examined All labs, imaging and other results reviewed The patient resting in bed, continues to have upper abd pain 01/09, currently receiving Dilaudid for pain. c/o some nausea no vomiting PHYSICAL EXAMINATION: GENERAL: Well developed, well nourished, alert & oriented x 3 SKIN: No lesions EYES: Pupils equal reactive to light, no discharge. EARS/NOSE AND THROAT: Ears normal, nose normal NECK: Supple, no masses CHEST: Inspection within normal limits. CARDIOVASCULAR: Heart: Regular rate and rhythm RESPIRATORY: Lungs clear to auscultation GASTROINTESTINAL AND LIVER: Abdomen: Soft, LUQ pain 10, non-distended, no hernias, no masses, no organomegaly, no ascites, no guarding, no rebound tenderness, normoactive bowel sounds. Rectal: Deferred. EXTREMITIES: No cyanosis, clubbing or edema. Result Diagram: 09/03/18 0418 09/03/18 0418 Results 24hrs Laboratory Tests Test 09/02/18 17:55 09/02/18 21:23 09/03/18 01:33 09/03/18 04:18 Bedside Glucose 147 143 166 White Blood Count 4.9 # Red Blood Count 4.49 Hemoglobin 12.3 Hematocrit 38.8 Mean Corpuscular Volume 86.4 Mean Corpuscular 27.4 L Hemoglobin Mean Corpuscular 31.7 L Hemoglobin Concent Red Cell Distribution 13.2 Width Platelet Count 160 Mean Platelet Volume 10.5 H Immature Granulocytes % 0.600 H Neutrophils % 51.0 Lymphocytes % 36.3 Monocytes % 9.9 Eosinophils % 1.8 Basophils % 0.4 Nucleated Red Blood 0.0 Cells % Immature Granulocytes # 0.030 Neutrophils # 2.5 Lymphocytes # 1.8 Monocytes # 0.5 Eosinophils # 0.1 Basophils # 0.0 Nucleated Red Blood 0.0 Cells # Sodium Level 143 Potassium Level 3.8 Chloride Level 106 Carbon Dioxide Level 27 Anion Gap 10 Blood Urea Nitrogen 9 Creatinine 0.43 L Est Glomerular Filtrat > 60 Rate mL/min Glucose Level 146 Calcium Level 9.3 Magnesium Level 2.2 Total Bilirubin 0.6 Direct Bilirubin 0.00 Indirect Bilirubin 0.6 Aspartate Amino 58 H Transf (AST/SGOT) Alanine 130 H Aminotransferase (ALT/SG PT) Alkaline Phosphatase 241 H Total Protein 6.8 Albumin 3.6 Globulin 3.20 Albumin/Globulin Ratio 1.12 Lipase 459 H Test 09/03/18 05:16 09/03/18 08:55 09/03/18 12:38 Bedside Glucose 133 161 147 Exam/Review of Systems Exam Vitals Vital Signs Date Temp Pulse Resp B/P (MAP) Pulse Ox O2 O2 Flow FiO2 Time Delivery Rate 09/03/18 98.3 78 18 108/54 94 Room Air 07:55 (72) Intake and Output 09/02/18 09/02/18 09/03/18 1515:00 23:00 07:00 IntakeIntake Total 500 ml 500 ml 1080 ml BalanceBalance 500 ml 500 ml 1080 ml Results Results 24hrs Laboratory Tests Test 09/02/18 17:55 09/02/18 21:23 09/03/18 01:33 09/03/18 04:18 Bedside Glucose 147 143 166 White Blood Count 4.9 # Red Blood Count 4.49 Hemoglobin 12.3 Hematocrit 38.8 Mean Corpuscular Volume 86.4 Mean Corpuscular 27.4 L Hemoglobin Mean Corpuscular 31.7 L Hemoglobin Concent Red Cell Distribution 13.2 Width Platelet Count 160 Mean Platelet Volume 10.5 H Immature Granulocytes % 0.600 H Neutrophils % 51.0 Lymphocytes % 36.3 Monocytes % 9.9 Eosinophils % 1.8 Basophils % 0.4 Nucleated Red Blood 0.0 Cells % Immature Granulocytes # 0.030 Neutrophils # 2.5 Lymphocytes # 1.8 Monocytes # 0.5 Eosinophils # 0.1 Basophils # 0.0 Nucleated Red Blood 0.0 Cells # Sodium Level 143 Potassium Level 3.8 Chloride Level 106 Carbon Dioxide Level 27 Anion Gap 10 Blood Urea Nitrogen 9 Creatinine 0.43 L Est Glomerular Filtrat > 60 Rate mL/min Glucose Level 146 Calcium Level 9.3 Magnesium Level 2.2 Total Bilirubin 0.6 Direct Bilirubin 0.00 Indirect Bilirubin 0.6 Aspartate Amino 58 H Transf (AST/SGOT) Alanine 130 H Aminotransferase (ALT/SG PT) Alkaline Phosphatase 241 H Total Protein 6.8 Albumin 3.6 Globulin 3.20 Albumin/Globulin Ratio 1.12 Lipase 459 H Test 09/03/18 05:16 09/03/18 08:55 09/03/18 12:38 Bedside Glucose 133 161 147 Medications Medication Current Medications IV Flush (NS 3 ml) 3 ml PER PROTOCOL IV ; Start 09/02/18 at 03:00 Ondansetron HCl (Zofran Inj) 4 mg Q6H PRN IV NAUSEA/VOMITING; Start 09/02/18 at 03:00 Acetaminophen (Tylenol Tab) 650 mg Q6H PRN PO .PAIN 1-3 OR TEMP; Start 09/02/18 at 03:00 Docusate Sodium (Colace) 100 mg Q12H PRN PO .CONSTIPATION; Start 09/02/18 at 03:00 Bisacodyl (Dulcolax) 5 mg DAILY PRN PO .CONSTIPATION; Start 09/02/18 at 03:00 Diagnostic Test (Pha) (Accu-Chek) 1 ea 02 XX ; Start 09/03/18 at 02:00 Insulin Aspart (Novolog Insulin Pen) NOVOLOG *MILD* ALGORI... Q4 SC Last administered on 09/03/18at 12:58; Admin Dose 1 UNIT; Start 09/02/18 at 09:00 Miscellaneous Information 1 ea NOTE XX ; Start 09/02/18 at 09:00 Glucose (Glutose) 15 gm Q15M PRN PO DECREASED GLUCOSE; Start 09/02/18 at 09:00 Glucose (Glutose) 22.5 gm Q15M PRN PO DECREASED GLUCOSE; Start 09/02/18 at 09:00 Dextrose (D50w Syringe) 25 ml Q15M PRN IV DECREASED GLUCOSE; Start 09/02/18 at 09:00 Dextrose (D50w Syringe) 50 ml Q15M PRN IV DECREASED GLUCOSE; Start 09/02/18 at 09:00 Glucagon (Glucagen) 1 mg Q15M PRN IM DECREASED GLUCOSE; Start 09/02/18 at 09:00 Glucose (Glutose) 15 gm Q15M PRN BUCCAL DECREASED GLUCOSE; Start 09/02/18 at 0 9:00 Hydromorphone HCl (Dilaudid) 1 mg Q4H PRN IV .SEVERE PAIN 7-10 Last administered on 09/03/18at 10:23; Admin Dose 1 MG; Start 09/02/18 at 11:00 Dextrose/Sodium Chloride 1,000 ml @ 80 mls/hr [id number] IV Last administered on 09/03/18at 12:41; Admin Dose 80 MLS/HR; Start 09/02/18 at 10:30 Insulin Glargine (Lantus) 9 units DAILY@0800 SC Last administered on 09/03/18at 09:26; Admin Dose 9 UNITS; Start 09/02/18 at 10:30 Pantoprazole (Protonix Iv) 40 mg DAILY@06 IV Last administered on 09/03/18at 05:19; Admin Dose 40 MG; Start 09/02/18 at 10:30 Piperacillin Sod/ Tazobactam Sod 100 ml @ 200 mls/hr Q6 IVPB Last administered on 09/03/18at 11:41; Admin Dose 200 MLS/HR; Start 09/03/18 at 06:00 ERIC GORMAN Sep 03, 2018 13:25
[2018-09-03 14:31] VITALS: BP 104/54; PULSE 70; RESP 18
[2018-09-03 20:12] VITALS: BP 118/58; PULSE 74; RESP 20
[2018-09-04] MEDS: INSULIN ASPART [NOVOLOG] 3 ML PEN SC SCH ×4 (01:00→12:41)
[2018-09-04] MEDS: DEXTROSE 5%-0.45% NACL 1,000 ML IV SCH (01:24)
[2018-09-04] MEDS: ACCU-CHEK XX SCH (01:36)
[2018-09-04 02:27] VITALS: BP 120/74; PULSE 75; RESP 17
[2018-09-04] MEDS: PANTOPRAZOLE 40 MG INJ IV SCH (05:19)
[2018-09-04] MEDS: PIPER-TAZO 3.375 GM IV (PMX) 100 ML IVPB SCH ×2 (05:19→11:45)
[2018-09-04 08:25] VITALS: BP 116/54; PULSE 67; RESP 18
[2018-09-04] MEDS: INSULIN GLARGINE [LANTus] (100 UNITS/ML) SYG SC SCH (09:04)
--- NOTE | 2018-09-04 10:02 | PN ---
Date/Time of Note Date/Time of Note DATE: 09/04/18 TIME: 10:00 Assessment/Plan VTE Prophylaxis Risk score (from Nsg)>0 risk: 1 SCD applied (from Nsg): Yes Pharmacological prophylaxis: NA/contraindicated Pharm contraindication: low risk/ambulating Lines/Catheters IV Catheter Type (from Nrsg): Peripheral IV Urinary Cath still in place: No Assessment/Plan Hospital Course SUBJECTIVE: No acute overnight episodes. Patient with no further abdominal pain. OBJECTIVE: Vital signs-see below PHYSICAL EXAM: Constitutional: Well-developed, adequately built, lying in bed comfortably. Psych: nl mood/affect, no complaints Head: atraumatic, normocephalic Eyes: nl conjunctiva, nl sclera ENMT: mucosa pink and moist, nl external ears & nose Neck: non-tender, supple Respiratory: clear to auscultation, normal air movement Cardiovascular: nl pulses, regular rate and rhythm Gastrointestinal: No further tenderness. .soft, bowel sounds active in all 4 quadrants. Musculoskeletal/extremities:Nl extremities to inspection, motor strength equal bilaterally, no focal deficit. Normal pulses,no cyanosis, no edema. Neurological: Alert oriented 3,nl speech, nl strength Skin: nl turgor ASSESSMENT/PLAN: 57-year-old female with diabetes, admitted with RLQ abdominal p ain associated with nonbilious/nonbloody vomiting times 4-day duration found to have gallstone pancreatitis. 1. Gallstone pancreatitis. -Symptoms resolved. Lipase trended down. -Start clear diet and advance as tolerated. 2. Cholelithiasis with probable cholecystitis. -Outpatient cholecystectomy recommended per surgery, for which patient opted to do it at [facility] that she resides. 3. CBD dilatation 10 mm in size, no choledocholithiasis identified an MRI, likely passing stone. -Bilirubinemia resolved. Symptoms resolved. -No further GI intervention indicated. 4.DMII -Stable glycemic trends. Continue insulin regimen. 5. Fatty liver. -Lifestyle changes advised. DVT prophylaxis: SCDs/ambulation. PUD prophylaxis: Not indicated CODE STATUS: Full code Diet: clear and advance as tolerated. Disposition: Continue current management. Start clear diet today and advance as tolerated. DC planning in 24 hours if patient able to tolerate a diet. Patient was seen in collaboration with Dr. Nguyen. Result Diagram: 09/04/18 0415 09/04/18 0415 Results 24hrs Laboratory Tests Test 09/03/18 12:38 09/03/18 17:31 09/03/18 20:28 09/04/18 01:24 Bedside Glucose 147 143 128 125 Test 09/04/18 04:15 09/04/18 05:24 09/04/18 08:13 White Blood Count 5.2 Red Blood Count 4.41 Hemoglobin 12.1 Hematocrit 37.6 Mean Corpuscular Volume 85.3 Mean Corpuscular 27.4 L Hemoglobin Mean Corpuscular 32.2 Hemoglobin Concent Red Cell Distribution 12.9 Width Platelet Count 159 Mean Platelet Volume 10.2 Immature Granulocytes % 0.400 Neutrophils % 46.2 Lymphocytes % 40.5 Monocytes % 9.4 Eosinophils % 3.1 Basophils % 0.4 Nucleated Red Blood 0.0 Cells % Immature Granulocytes # 0.020 Neutrophils # 2.4 Lymphocytes # 2.1 Monocytes # 0.5 Eosinophils # 0.2 Basophils # 0.0 Nucleated Red Blood 0.0 Cells # Sodium Level 141 Potassium Level 3.5 Chloride Level 107 Carbon Dioxide Level 26 Anion Gap 8 Blood Urea Nitrogen 7 Creatinine 0.45 Est Glomerular Filtrat > 60 Rate mL/min Glucose Level 148 Calcium Level 9.3 Total Bilirubin 0.8 Direct Bilirubin 0.00 Indirect Bilirubin 0.8 Aspartate Amino 42 Transf (AST/SGOT) Alanine 91 H Aminotransferase (ALT/SG PT) Alkaline Phosphatase 236 H Total Protein 6.6 Albumin 3.4 Globulin 3.20 Albumin/Globulin Ratio 1.06 Amylase Level 63 Lipase 308 H Bedside Glucose 147 171 Exam/Review of Systems Exam Vitals Vital Signs Date Temp Pulse Resp B/P (MAP) Pulse Ox O2 O2 Flow FiO2 Time Delivery Rate 09/04/18 98.0 67 18 116/54 99 Room Air 08:25 (74) Intake and Output 09/03/18 09/03/18 09/04/18 1515:00 23:00 07:00 IntakeIntake Total 580 ml 420 ml 1080 ml BalanceBalance 580 ml 420 ml 1080 ml Results Results 24hrs Laboratory Tests Test 09/03/18 12:38 09/03/18 17:31 09/03/18 20:28 09/04/18 01:24 Bedside Glucose 147 143 128 125 Test 09/04/18 04:15 09/04/18 05:24 09/04/18 08:13 White Blood Count 5.2 Red Blood Count 4.41 Hemoglobin 12.1 Hematocrit 37.6 Mean Corpuscular Volume 85.3 Mean Corpuscular 27.4 L Hemoglobin Mean Corpuscular 32.2 Hemoglobin Concent Red Cell Distribution 12.9 Width Platelet Count 159 Mean Platelet Volume 10.2 Immature Granulocytes % 0.400 Neutrophils % 46.2 Lymphocytes % 40.5 Monocytes % 9.4 Eosinophils % 3.1 Basophils % 0.4 Nucleated Red Blood 0.0 Cells % Immature Granulocytes # 0.020 Neutrophils # 2.4 Lymphocytes # 2.1 Monocytes # 0.5 Eosinophils # 0.2 Basophils # 0.0 Nucleated Red Blood 0.0 Cells # Sodium Level 141 Potassium Level 3.5 Chloride Level 107 Carbon Dioxide Level 26 Anion Gap 8 Blood Urea Nitrogen 7 Creatinine 0.45 Est Glomerular Filtrat > 60 Rate mL/min Glucose Level 148 Calcium Level 9.3 Total Bilirubin 0.8 Direct Bilirubin 0.00 Indirect Bilirubin 0.8 Aspartate Amino 42 Transf (AST/SGOT) Alanine 91 H Aminotransferase (ALT/SG PT) Alkaline Phosphatase 236 H Total Protein 6.6 Albumin 3.4 Globulin 3.20 Albumin/Globulin Ratio 1.06 Amylase Level 63 Lipase 308 H Bedside Glucose 147 171 Medications Medication Current Medications IV Flush (NS 3 ml) 3 ml PER PROTOCOL IV ; Start 09/02/18 at 03:00 Ondansetron HCl (Zofran Inj) 4 mg Q6H PRN IV NAUSEA/VOMITING; Start 09/02/18 at 03:00 Acetaminophen (Tylenol Tab) 650 mg Q6H PRN PO .PAIN 1-3 OR TEMP; Start 09/02/18 at 03:00 Docusate Sodium (Colace) 100 mg Q12H PRN PO .CONSTIPATION; Start 09/02/18 at 03:00 Bisacodyl (Dulcolax) 5 mg DAILY PRN PO .CONSTIPATION; Start 09/02/18 at 03:00 Diagnostic Test (Pha) (Accu-Chek) 1 ea 02 XX ; Start 09/03/18 at 02:00 Insulin Aspart (Novolog Insulin Pen) NOVOLOG *MILD* ALGORI... Q4 SC Last administered on 09/04/18at 09:04; Admin Dose 1 UNIT; Start 09/02/18 at 09:00 Miscellaneous Information 1 ea NOTE XX ; Start 09/02/18 at 09:00 Glucose (Glutose) 15 gm Q15M PRN PO DECREASED GLUCOSE; Start 09/02/18 at 09:00 Glucose (Glutose) 22.5 gm Q15M PRN PO DECREASED GLUCOSE; Start 09/02/18 at 09:00 Dextrose (D50w Syringe) 25 ml Q15M PRN IV DECREASED GLUCOSE; Start 09/02/18 at 09:00 Dextrose (D50w Syringe) 50 ml Q15M PRN IV DECREASED GLUCOSE; Start 09/02/18 at 09:00 Glucagon (Glucagen) 1 mg Q15M PRN IM DECREASED GLUCOSE; Start 09/02/18 at 09:00 Glucose (Glutose) 15 gm Q15M PRN BUCCAL DECREASED GLUCOSE; Start 09/02/18 at 09:00 Hydromorphone HCl (Dilaudid) 1 mg Q4H PRN IV .SEVERE PAIN 7-10 Last administered on 09/03/18at 17:40; Admin Dose 1 MG; Start 09/02/18 at 11:00 Dextrose/Sodium Chloride 1,000 ml @ 80 mls/hr [id number] IV Last administered on 09/04/18at 01:24; Admin Dose 80 MLS/HR; Start 09/02/18 at 10:30 Insulin Glargine (Lantus) 9 units DAILY@0800 SC Last administered on 09/04/18at 09:04; Admin Dose 9 UNITS; Start 09/02/18 at 10:30 Pantoprazole (Protonix Iv) 40 mg DAILY@06 IV Last administered on 09/04/18at 05:19; Admin Dose 40 MG; Start 09/02/18 at 10:30 Piperacillin Sod/ Tazobactam Sod 100 ml @ 200 mls/hr Q6 IVPB Last administered on 09/04/18at 05:19; Admin Dose 200 MLS/HR; Start 09/03/18 at 06:00 MI MONTIEL NP Sep 04, 2018 10:02
--- NOTE | 2018-09-04 13:31 | PN ---
Date/Time of Note Date/Time of Note DATE: 09/04/18 TIME: 13:27 Assessment/Plan Lines/Catheters IV Catheter Type (from [facility]): Peripheral IV Alex in Place (from [facility]): No Assessment/Plan Chief Complaint/Hosp Course 1. Abdominal pain: Resolved 2. Nausea vomiting: Resolved 3. Gallstones 4. Pancreatitis: Likely secondary to #3: Continuing to improve 5. Transaminitis: Improved 6. Hyperbilirubinemia: Improved; possible cholecystitis -Judicious IV fluid -Trend labs -GI consult noted> possible ERCP -MRCP noted with dilated CBD -low-fat low-cholesterol diet -Okay for discharge from surgical standpoint.> Outpatient follow-up for cholecystectomy, had long discussion with family. family and patient would prefer to have outpatient surgery in [facility], [place] where the patient resides. The patient is planning to fly back on the of this month. She was instructed to follow-up with primary care and surgeon when she returns [facility]. 7. Gastritis -Diet and lifestyle optimization -Antacids Thank you. Patient seen and examined in collaboration with Dr. Gary Vega. Subjective 24 Hr Interval Summary Feels well. No acute abdominal pain. Tolerating liquid diet. No fevers, chills, sob, congested cough, cp, palpitations, kaba, dizziness, nausea, vomiting, diarrhea, dysuria. Exam/Review of Systems Vital Signs Vitals Vital Signs Date Temp Pulse Resp B/P (MAP) Pulse Ox O2 O2 Flow FiO2 Time Delivery Rate 09/04/18 98.0 67 18 116/54 99 Room Air 08:25 (74) Intake and Output 09/03/18 09/03/18 09/04/18 1515:00 23:00 07:00 IntakeIntake Total 580 ml 420 ml 1080 ml BalanceBalance 580 ml 420 ml 1080 ml Exam Free Text/Dictation Constitutional: alert, oriented; No distress Psych: nl mood/affect; No anxiety Head: normocephalic, atraumatic Eyes: nl conjunctiva, EOMI, PERRL ENMT: nl external ears & nose, mucosa pink and moist Neck: supple, non-tender; No jvd Respiratory: normal air movement; No congested cough, No labored breathing Cardiovascular: regular rate and rhythm; No edema Gastrointestinal: soft, nontender; No distended, No rebound or guarding Musculoskeletal: nl extremities to inspection; No joint tenderness Extremities: normal pulses; No calf tenderness, No cyanosis Neurological: nl mental status, nl speech, nl strength Skin: nl turgor; No rash or lesions, No diaphoresis Lymph: nl lymph nodes Results Result Diagram: 09/04/18 0415 09/04/18 0415 MICHAEL HAJI NP Sep 04, 2018 13:31
--- NOTE | 2018-09-04 13:53 | PN ---
Date/Time of Note Date/Time of Note DATE: 09/04/18 TIME: 13:47 Assessment/Plan VTE Prophylaxis Risk score (from Ns)>0 risk: 1 SCD applied (from Ns): Yes Pharmacological prophylaxis: heparin Lines/Catheters [facility] Peripheral IV Urinary Cath still in place: No Assessment/Plan Assessment/Plan Assessment: Acute pancreatitis likely secondary to cholelithiasis -MRCP- Mild common bile duct dilatation up to 10 mm. No choledocholithiasis is seen. Cholelithiasis Elevated LFTs-trending down -Hepatitis serology pending Indirect hyperbilirubinemia-resolved Plan: Advance diet to soft Reviewed results with Dr. Coffey- likely stone passage no plan for ERCP at this time- as patient is improving and no obstruction noted Pt declines cholecystectomy, would prefer to go home and have surgery completed there- per surgery Supportive care Patient seen in collaboration with Dr. Coffey/Chanda Subjective: Course reviewed with nursing staff Patient interviewed and examined All labs, imaging and other results reviewed Patient is doing well. Denies abdominal pain, nausea or vomiting. Tolerating clear liquid diet well. Upper abdominal pain elicited only on palpation and it is mild. Lipase is down to 302. Liver function test is trending down. Plan is to advance the diet to soft. Continue observation. PHYSICAL EXAMINATION: GENERAL: Well developed, well nourished, alert & oriented x 3 SKIN: No lesions EYES: Pupils equal reactive to light, no discharge. EARS/NOSE AND THROAT: Ears normal, nose normal NECK: Supple, no masses CHEST: Inspection within normal limits. CARDIOVASCULAR: Heart: Regular rate and rhythm RESPIRATORY: Lungs clear to auscultation GASTROINTESTINAL AND LIVER: Abdomen: Soft, mild epigastric tenderness on palpation, non-distended, no hernias, no masses, no organomegaly, no ascites, no guarding, no rebound tenderness, normoactive bowel sounds. Rectal: Deferred. EXTREMITIES: No cyanosis, clubbing or edema Result Diagram: 09/04/18 0415 09/04/18 0415 Results 24hrs Laboratory Tests Test 09/03/18 17:31 09/03/18 20:28 09/04/18 01:24 09/04/18 04:15 Bedside Glucose 143 128 125 White Blood Count 5.2 Red Blood Count 4.41 Hemoglobin 12.1 Hematocrit 37.6 Mean Corpuscular Volume 85.3 Mean Corpuscular 27.4 L Hemoglobin Mean Corpuscular 32.2 Hemoglobin Concent Red Cell Distribution 12.9 Width Platelet Count 159 Mean Platelet Volume 10.2 Immature Granulocytes % 0.400 Neutrophils % 46.2 Lymphocytes % 40.5 Monocytes % 9.4 Eosinophils % 3.1 Basophils % 0.4 Nucleated Red Blood 0.0 Cells % Immature Granulocytes # 0.020 Neutrophils # 2.4 Lymphocytes # 2.1 Monocytes # 0.5 Eosinophils # 0.2 Basophils # 0.0 Nucleated Red Blood 0.0 Cells # Sodium Level 141 Potassium Level 3.5 Chloride Level 107 Carbon Dioxide Level 26 Anion Gap 8 Blood Urea Nitrogen 7 Creatinine 0.45 Est Glomerular Filtrat > 60 Rate mL/min Glucose Level 148 Calcium Level 9.3 Total Bilirubin 0.8 Direct Bilirubin 0.00 Indirect Bilirubin 0.8 Aspartate Amino 42 Transf (AST/SGOT) Alanine 91 H Aminotransferase (ALT/SG PT) Alkaline Phosphatase 236 H Total Protein 6.6 Albumin 3.4 Globulin 3.20 Albumin/Globulin Ratio 1.06 Amylase Level 63 Lipase 308 H Test 09/04/18 05:24 09/04/18 08:13 09/04/18 12:03 Bedside Glucose 147 171 162 CC: VIRGILIO STRATTON L ; Exam/Review of Systems Exam Vitals Vital Signs Date Temp Pulse Resp B/P (MAP) Pulse Ox O2 O2 Flow FiO2 Time Delivery Rate 09/04/18 98.0 67 18 116/54 99 Room Air 08:25 (74) Intake and Output 09/03/18 09/03/18 09/04/18 1515:00 23:00 07:00 IntakeIntake Total 580 ml 420 ml 1080 ml BalanceBalance 580 ml 420 ml 1080 ml Results Results 24hrs Laboratory Tests Test 09/03/18 17:31 09/03/18 20:28 09/04/18 01:24 09/04/18 04:15 Bedside Glucose 143 128 125 White Blood Count 5.2 Red Blood Count 4.41 Hemoglobin 12.1 Hematocrit 37.6 Mean Corpuscular Volume 85.3 Mean Corpuscular 27.4 L Hemoglobin Mean Corpuscular 32.2 Hemoglobin Concent Red Cell Distribution 12.9 Width Platelet Count 159 Mean Platelet Volume 10.2 Immature Granulocytes % 0.400 Neutrophils % 46.2 Lymphocytes % 40.5 Monocytes % 9.4 Eosinophils % 3.1 Basophils % 0.4 Nucleated Red Blood 0.0 Cells % Immature Granulocytes # 0.020 Neutrophils # 2.4 Lymphocytes # 2.1 Monocytes # 0.5 Eosinophils # 0.2 Basophils # 0.0 Nucleated Red Blood 0.0 Cells # Sodium Level 141 Potassium Level 3.5 Chloride Level 107 Carbon Dioxide Level 26 Anion Gap 8 Blood Urea Nitrogen 7 Creatinine 0.45 Est Glomerular Filtrat > 60 Rate mL/min Glucose Level 148 Calcium Level 9.3 Total Bilirubin 0.8 Direct Bilirubin 0.00 Indirect Bilirubin 0.8 Aspartate Amino 42 Transf (AST/SGOT) Alanine 91 H Aminotransferase (ALT/SG PT) Alkaline Phosphatase 236 H Total Protein 6.6 Albumin 3.4 Globulin 3.20 Albumin/Globulin Ratio 1.06 Amylase Level 63 Lipase 308 H Test 09/04/18 05:24 09/04/18 08:13 09/04/18 12:03 Bedside Glucose 147 171 162 Medications Medication Current Medications IV Flush (NS 3 ml) 3 ml PER PROTOCOL IV ; Start 09/02/18 at 03:00 Ondansetron HCl (Zofran Inj) 4 mg Q6H PRN IV NAUSEA/VOMITING; Start 09/02/18 at 03:00 Acetaminophen (Tylenol Tab) 650 mg Q6H PRN PO .PAIN 1-3 OR TEMP; Start 09/02/18 at 03:00 Docusate Sodium (Colace) 100 mg Q12H PRN PO .CONSTIPATION; Start 09/02/18 at 03:00 Bisacodyl (Dulcolax) 5 mg DAILY PRN PO .CONSTIPATION; Start 09/02/18 at 03:00 Diagnostic Test (Pha) (Accu-Chek) 1 ea 02 XX ; Start 09/03/18 at 02:00 Insulin Aspart (Novolog Insulin Pen) NOVOLOG *MILD* ALGORI... Q4 SC Last administered on 09/04/18at 12:41; Admin Dose 1 UNIT; Start 09/02/18 at 09:00 Miscellaneous Information 1 ea NOTE XX ; Start 09/02/18 at 09:00 Glucose (Glutose) 15 gm Q15M PRN PO DECREASED GLUCOSE; Start 09/02/18 at 09:00 Glucose (Glutose) 22.5 gm Q15M PRN PO DECREASED GLUCOSE; Start 09/02/18 at 09:00 Dextrose (D50w Syringe) 25 ml Q15M PRN IV DECREASED GLUCOSE; Start 09/02/18 at 09:00 Dextrose (D50w Syringe) 50 ml Q15M PRN IV DECREASED GLUCOSE; Start 09/02/18 at 09:00 Glucagon (Glucagen) 1 mg Q15M PRN IM DECREASED GLUCOSE; Start 09/02/18 at 09:00 Glucose (Glutose) 15 gm Q15M PRN BUCCAL DECREASED GLUCOSE; Start 09/02/18 at 09:00 Hydromorphone HCl (Dilaudid) 1 mg Q4H PRN IV .SEVERE PAIN 7-10 Last administered on 09/03/18at 17:40; Admin Dose 1 MG; Start 09/02/18 at 11:00 Dextrose/Sodium Chloride 1,000 ml @ 80 mls/hr [id number] IV Last administered on 09/04/18at 01:24; Admin Dose 80 MLS/HR; Start 09/02/18 at 10:30 Insulin Glargine (Lantus) 9 units DAILY@0800 SC Last administered on 09/04/18at 09:04; Admin Dose 9 UNITS; Start 09/02/18 at 10:30 Pantoprazole (Protonix Iv) 40 mg DAILY@06 IV Last administered on 09/04/18 05:19; Admin Dose 40 MG; Start 09/02/18 at 10:30 Piperacillin Sod/ Tazobactam Sod 100 ml @ 200 mls/hr Q6 IVPB Last administered on 09/04/18at 11:45; Admin Dose 200 MLS/HR; Start 09/03/18 at 06:00 MARIBELL HALEY NP Sep 04, 2018 13:53
[2018-09-04 14:20] VITALS: BP 126/61; PULSE 65; RESP 18
--- NOTE | 2018-09-04 14:24 | PDOCDIS ---
Discharge Instructions CONDITION [id number] Patient Condition: [id number] Stable HOME CARE INSTRUCTIONS: [id number] Your diet recommendation is: [id number] Carbohydrate controlled/low calorie diet. FOLLOW UP/APPOINTMENTS Follow-up Plan Follow-up with primary care physician in 1 week. You need your gallbladder removal surgery as outpatient. MI MONTIEL NP Sep 04, 2018 14:24
[2018-09-04] MEDS ORDERED: MTF1000T PO (14:26)
--- NOTE | 2018-09-04 14:44 | DS ---
Date/Time of Note Date/Time of Note DATE: 09/04/18 TIME: 14:32 Discharge Summary Admission/Discharge Info Admit Date/Time Sep 02, 2018 at 02:30 Discharge Date/Time Discharge Diagnosis 1. Gallstone pancreatitis.RESOLVED 2. Cholelithiasis with probable cholecystitis.-Outpatient cholecystectomy recommended 3. CBD dilatation 10 mm in size, no choledocholithiasis identified an MRI, likely passing stone. 4.DMII 5. Fatty liver. Patient Condition: Stable Consults Dr. Vega, surgery Dr. Johnson, gastroenterology Procedures 09/03/2018. MRCP. IMPRESSION: Cholelithiasis. Gallbladder wall thickening and edema suggestive of acute cholecystitis in the correct clinical setting. Mild common bile duct dilatation up to 10 mm. No choledocholithiasis is seen. RPTAT: [facility] Dylon Darden, Physician Date Time Electronically viewed and signed by Dylon Darden, Physician on 09/03/2018 10:0 09/01/2018. CT abdomen and pelvis. IMPRESSION: 1. Distended lateral gallbladder with cholelithiasis and mildly dilated common bile duct. 2. No CT evidence for appendicitis. 3. Mild vascular calcifications. .Romario Jean Baptiste MD, Date Time Electronically viewed and signed by .Romario Jean Baptiste MD, on 09/02/2018 01:27 Hospital Course 57-year-old female with diabetes, admitted with RLQ abdominal pain associated with nonbilious/nonbloody vomiting times 4-day duration found to have gallstone pancreatitis. She was admitted, comorbidities were managed per medical records. Patient had GI and surgery evaluation. She was placed on bowel rest with IV fluids, pain control. Patient symptoms improved. Lipase started to trend down. Patient was noted with CBD dilatation 10 mm in size and an MRCP did not detect choledocholit hiasis. This most likely representing passing of a biliary stone. There was no immediate need for an ERCP at this time. Patient symptoms have completely resolved. At this point, recommendation is elective outpatient cholecystectomy for which patient opted to do it in [facility]. Patient with clinical and laboratory findings of resolution of pancreatitis. She was advanced on a diet which she was able to tolerate. At this time, patient is having regular bowel movements, benign abdominal exam and stable for outpatient follow-up. Approximately 60 minutes was spent in coordinating the discharge of this patient. Patient was seen in collaboration with Dr. Nguyen. Home Meds Active Scripts Metformin* (Glucophage*) 1,000 Mg Tablet, 1000 MG PO WITH BREAKFAST DINNE, #60 TAB Prov:MI MONTIEL V. EXEC[employer]IVE VICE PRESIDENT OF SALES 09/04/18 Reported Medications Acetaminophen* (Acetaminophen*) 500 MG Extra Strength Tablet, 500 MG PO Q4H PRN for PAIN AND OR ELEVATED TEMP, TAB 09/02/18 Omeprazole* (Omeprazole*) Unknown Strength Capsule., PO BID, #60 CAP 09/02/18 Discontinued Reported Medications Metformin* (Glucophage*) Unknown Strength Tab, PO WITH BREAKFAST DINNE, #30 TAB 09/02/18 Follow-up Plan Follow-up with primary care physician in 1 week. You need your gallbladder removal surgery as outpatient. Primary Care Provider Care Physician No Primary Pending Labs Laboratory Tests Test 09/03/18 17:31 09/03/18 20:28 09/04/18 01:24 09/04/18 04:15 Bedside 143 128 125 Glucose mg/dL (70-220) mg/dL (70-220) mg/dL (70-220) White Blood 5.2 Count 10^3/ul (4.8-1 0.8) Red Blood 4.41 Count 10^6/ul (4.20- 5.40) Hemoglobin 12.1 g/dl (12.0-16. 0) Hematocrit 37.6 % (37.0-47.0) Mean 85.3 Corpuscular fl (82.0-101.0 Volume ) Mean 27.4 Corpuscular pg (29.0-33.0) Hemoglobin Mean 32.2 Corpuscular g/dl (32.0-37. Hemoglobin Conc 0) ent Red Cell 12.9 Distribution % (11.5-14.5) Width Platelet Count 159 10^3/UL (140-4 15) Mean Platelet 10.2 Volume fl (7.4-10.4) Immature 0.400 Granulocytes % % (0.001-0.429 ) Neutrophils % 46.2 % (39.0-77.0) Lymphocytes % 40.5 % (15.0-51.0) Monocytes % 9.4 % (0.0-11.0) Eosinophils % 3.1 % (0.0-7.0) Basophils % 0.4 % (0.0-2.0) Nucleated Red 0.0 Blood Cells % /100WBC (0.0-0 .0) Immature 0.020 Granulocytes # 10^3/ul (0.0-0 .031) Neutrophils # 2.4 10^3/ul (1.6-7 .5) Lymphocytes # 2.1 10^3/ul (0.8-2 .9) Monocytes # 0.5 10^3/ul (0.3-0 .9) Eosinophils # 0.2 10^3/ul (0.0-0 .5) Basophils # 0.0 10^3/ul (0.0-0 .1) Nucleated Red 0.0 Blood Cells # 10^3/ul (0.0-0 .0) Sodium Level 141 mmol/L (135-14 4) Potassium 3.5 Level mmol/L (3.5-5. 1) Chloride Level 107 mmol/L (97-110 ) Carbon Dioxide 26 Level mmol/L (21-31) Anion Gap 8 (5-13) Blood Urea 7 mg/dl (7-20) Nitrogen Creatinine 0.45 mg/dl (0.44-1. 00) Est Glomerular > 60 Filtrat mL/min (>60) Rate mL/min Glucose Level 148 mg/dl (70-220) Calcium Level 9.3 mg/dl (8.4-10. 2) Total 0.8 Bilirubin mg/dl (0.2-1.3 ) Direct 0.00 Bilirubin mg/dl (0.00-0. 20) Indirect 0.8 Bilirubin mg/dl (0-1.1) Aspartate Amino 42 Transf (AST/SGO IU/L (15-46) T) Alanine 91 Aminotransferas IU/L (13-69) e (ALT/SGPT) Alkaline 236 Phosphatase IU/L (42-121) Total Protein 6.6 g/dl (6.1-8.1) Albumin 3.4 g/dl (3.3-4.9) Globulin 3.20 g/dl (1.3-3.2) Albumin/Globuli 1.06 n Ratio Amylase Level 63 U/L (11-123) Lipase 308 U/L (23-300) Test 09/04/18 05:24 09/04/18 08:13 09/04/18 12:03 Bedside 147 171 162 Glucose mg/dL (70-220) mg/dL (70-220) mg/dL (70-220) MI MONTIEL V. EXECUTIVE VICE PRESIDENT OF SALES Sep 04, 2018 14:43
[2018-09-05] MEDS ORDERED: PANTOPRAZOLE (EC) 40 MG TAB PO SCH (06:00)
== END 2018-09-04 17:00 | disposition home or self-care (01) | DRG 439 ==
LOC: E/R 21:20 → MS1 09-02 02:30
PROVIDERS: ADMIT Family Medicine; ATTEND Family Medicine
DX: K85.10 Biliary acute pancreatitis without necrosis or infection (principal); K80.10 Calculus of gallbladder with chronic cholecystitis without obstruction; F17.200 Nicotine dependence, unspecified, uncomplicated; K29.70 Gastritis, unspecified, without bleeding; K83.8 Other specified diseases of biliary tract; E11.9 Type 2 diabetes mellitus without complications; K76.0 Fatty (change of) liver, not elsewhere classified
CPT/HCPCS: 36415; 71045; 74176; 74181; 76705; 80053; 80061; 80307; 81001; 82150; 82306; 82962; 83036; 83690; 83735; 84443; 84484; 85025; 85610; 85730; 86704; 86709; 86803; 87340; 93005; 96374; 96375; C9113; J0744; J1170; J1815; J1885; J2270; J2405; J2543; J7030; J7040; J7042